=== PATIENT | female | born 1985 | race Caucasian/White ===

== ENCOUNTER 2020-10-23 23:55 | Emergency (ER) | payer OTHER ==
[2020-10-24 00:09] VITALS: BMI 22.1
[2020-10-24] MEDS ORDERED: LORazepam 2 MG TABLET PO ONE (00:33)
[2020-10-24] MEDS ORDERED: LORazepam 1 MG TABLET ONE (00:35)
[2020-10-24 04:57] VITALS: BP 103/67; PULSE 87; TEMP 98.5
== END 2020-10-24 07:16 | disposition home or self-care (01) ==
LOC: JER 23:55
DX: R06.02 Shortness of breath (principal)
CPT/HCPCS: 71045-TC-FY; 93005; 93010; 99284-25